=== PATIENT | male | born 1965 | race Caucasian/White ===

== ENCOUNTER 2022-03-24 07:15 | Emergency (ER) | payer BC ==
[2022-03-24] MEDS ORDERED: Ketorolac 30 MG/ML SDV IM ONE (07:25)
[2022-03-24 07:58] VITALS: BP 155/88; PULSE 65
[2022-03-24 08:00] LABS: ANION GAP 11.2 meq/L (7-15); CHLORIDE,CL 102 mmol/L (98-107); ESTIMATED GFR 89 mL/min (>=60); SODIUM,NA 138 mmol/L (136-145)
[2022-03-24] MEDS ORDERED: Diazepam 5 MG Tab PO ONE (08:06)
[2022-03-24] MEDS ORDERED: Morphine 10 MG/ML Syringe IM ONE (08:06)
[2022-03-24] MEDS ORDERED: Ondansetron 4 MG Tab.DIS PO ONE (08:07)
== END 2022-03-24 09:30 | disposition home or self-care (01) ==
LOC: LL.ED 07:15
DX: M25.522 Pain in left elbow (principal); I10 Essential (primary) hypertension; E78.00 Pure hypercholesterolemia, unspecified; E66.9 Obesity, unspecified; Z68.30 Body mass index [BMI] 30.0-30.9, adult; Z79.899 Other long term (current) drug therapy; Z79.82 Long term (current) use of aspirin
CPT/HCPCS: 36415; 73080; 80053; 83735; 84484; 85025; 85379; 93005; 93010; 96372; 99284; A9270; J1885; J2270

== ENCOUNTER 2022-06-09 11:34 | Day surgery (SDC) | payer BC ==
[~2022-06-09 11:34] MED LIST: Midazolam 1 MG/ML 2 ML SDV ONE; Propofol 200 MG/20 ML SDV ONE
[2022-06-09] MEDS ORDERED: Lactated Ringers 1,000 ML IV SCH (12:00)
[2022-06-09] MEDS ORDERED: Sodium Chloride 0.9% 10 ML Syringe FLUSH PRN (12:00)
[2022-06-09 15:53] VITALS: BP 130/89; PULSE 71
== END 2022-06-09 15:11 | disposition home or self-care (01) ==
LOC: LL.SDS 11:34
PROVIDERS: ATTEND Surgery
DX: D12.7 Benign neoplasm of rectosigmoid junction (principal); D12.3 Benign neoplasm of transverse colon; K21.9 Gastro-esophageal reflux disease without esophagitis; I10 Essential (primary) hypertension; E78.5 Hyperlipidemia, unspecified; I25.2 Old myocardial infarction; Z79.899 Other long term (current) drug therapy
CPT/HCPCS: 00812; J2250; J2704; J7120

== ENCOUNTER 2024-08-13 17:51 | Emergency (ER) | payer BC ==
[2024-08-13 19:20] VITALS: BP 130/82; PULSE 78
== END 2024-08-13 19:10 | disposition home or self-care (01) ==
LOC: LL.ED 17:51
DX: L29.9 Pruritus, unspecified (principal); R22.1 Localized swelling, mass and lump, neck; I10 Essential (primary) hypertension; E78.00 Pure hypercholesterolemia, unspecified; Z95.5 Presence of coronary angioplasty implant and graft; Z79.899 Other long term (current) drug therapy; Z79.82 Long term (current) use of aspirin
CPT/HCPCS: 99283; 99284